=== PATIENT | male | born 1950 ===

== ENCOUNTER 2020-05-07 12:34 | Inpatient (IN) | payer MEDICARE ==
[~2020-05-07] VITALS: Ht 170.2 cm; Wt 56.0 kg
[2020-05-07] MEDS ORDERED: ASPIRIN 325 MG TABLET PO ONE (12:43)
--- NOTE | 2020-05-07 12:48 | NUR ---
PT BIB EMS FOR STEMI ALERT. EMS WAS CALLED TO [place] BY PT FAMILY MEMBER. PT WAS CO OF DIZZINES AND PER FAMILY HAD 3 NEAR SYNCOPLE EPISODES. EMS DID A [address] ELEVATION. EMS ALSO STATED HE WAS HYPOTENSIVE "IN THE 80S OVER 40S THE WHOLE TIME" PT HAS DENIED CHEST PAIN BUT STATES HES NAUSEOUS AND DIZZY. 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 ED MD AND EQUINE INTERN BEDSIDE FOR ASSESSMENT EKG COMPLETE. I STAT LABS DRAWN. PT ON DEFIB PADS. TKO NS RUNNING. PT PUT ON 2 LITERS O2 VIA NC. PT AWAITING TO GO TO FIRST AID INSTRUCTOR AT THIS TIME
--- NOTE | 2020-05-07 12:53 | NUR ---
PRODUCTION MANAGER NOT READY AT THIS TIME. WILL CALL ED WHEN READY FOR PT.
--- NOTE | 2020-05-07 12:54 | NUR ---
INVESTIGATION OFFICER AWARE OF PT BP. SEE MAR FOR INTERVENTIONS
[2020-05-07] MEDS ORDERED: SODIUM CHLORIDE 0.9% 1,000ML IVBOLUS ONE (13:00)
[2020-05-07 13:01] LABS: BASOPHILS % (AUTO) 0 % (0-1); EOSINOPHILS % (AUTO) 0 % (1-7); LYMPHOCYTES % (AUTO) 5 % (22-44); MEAN CORPUSCULAR HEMOGLOBIN 23.3 pg (27.5-34.5); MEAN CORPUSCULAR HGB CONC 30.5 g/dL (33.2-36.2); MEAN PLATELET VOLUME 6.9 fL (7.4-10.4); MONOCYTES % (AUTO) 11 % (2-9); NEUTROPHILS % (AUTO) 84 % (42-75); PLATELET COUNT 391 x10^3/uL (130-400); RED BLOOD COUNT 3.61 x10^6/uL (4.38-5.82); RED CELL DISTRIBUTION WIDTH 19.1 % (9.4-14.8)
[2020-05-07 13:08] LABS: MD NO
--- NOTE | 2020-05-07 13:08 | NUR ---
PT RESTING IN RJACOB. NAD. VSS. BP HAS IMPROVED. STILL AWAITING DIRECTOR OF ENGINEERING.
[2020-05-07 13:12] LABS: TROPONIN I 0.058 ng/mL (0.000-0.045)
[2020-05-07] MEDS ORDERED: NITROGLYCERIN 30 MCG/ML, 20ML VIAL ONE (13:21)
[2020-05-07] MEDS ORDERED: BIVALIRUDIN 250 MG ONE (13:21)
[2020-05-07] MEDS ORDERED: FENTANYL PF 250 MCG/5ML ONE (13:21)
[2020-05-07] MEDS ORDERED: MIDAZOLAM 1 MG/ML, 5ML ONE ×2 (13:21→20:18)
[2020-05-07 13:23] LABS: INTERNATIONAL NORMALIZED RATIO 1.08 (0.93-1.1); PROTHROMBIN TIME 11.4 Seconds (9.6-11.5)
--- NOTE | 2020-05-07 13:23 | NUR ---
CODE CARDIAC NOTES: CODE CARDIAC PAGED @ 1230. PT ARRIVED IN ED VIA EMS @ 1232. CARDIOLOGY PAGED @ 1232. DR. CAMERON AT BEDSIDE @ 1234. PT TO POULTRYMAN @ 1123.
[2020-05-07] MEDS ORDERED: LIDOCAINE 1%, 20ML ONE (13:27)
[2020-05-07] MEDS ORDERED: GABAPENTIN 300 MG CAPSULE PO PRN (13:30)
[2020-05-07] MEDS ORDERED: ONDANSETRON ODT 4 MG PO PRN (13:30)
[2020-05-07] MEDS ORDERED: OXYcodone/APAP 5/325MG TABLET PO PRN (13:30)
[2020-05-07] MEDS ORDERED: LABETALOL 5MG/ML, 20ML IVPush PRN (13:30)
[2020-05-07] MEDS ORDERED: ENALAPRILAT 1.25 MG/ML, 2ML IVPush PRN (13:30)
[2020-05-07] MEDS ORDERED: ONDANSETRON 2MG/ML, 2ML IVPush PRN (13:30)
[2020-05-07] MEDS ORDERED: ACETAMINOPHEN 325 MG TABLET PO PRN (13:30)
[2020-05-07] MEDS ORDERED: BACLOFEN 10 MG TABLET PO PRN (13:30)
[2020-05-07] MEDS ORDERED: BUTALB/APAP/CAFFEINE 50MG/325MG/40MG PO PRN (13:30)
[2020-05-07] MEDS ORDERED: LACTATED RINGERS 1,000 ML IV SCH (13:30)
[2020-05-07] MEDS ORDERED: GUAIFENESIN/DM 200-20MG, 10ML UDC PO PRN (13:30)
--- NOTE | 2020-05-07 13:32 | NUR ---
DEPARTED FOR NEWS CLIPPING CUTTER AT 1322. REPORT GIVEN TO KERI JOHNSON. EXPLAINED TO HER THAT PT WAS MEETING SEPSIS CRITERIA PER [employer] AND GAVE HER THE SEPSIS FLOW CHART THAT HAD BEEN STARTED IN THE ED.
--- NOTE | 2020-05-07 13:32 | NUR ---
CHAKA THOMAS, DEEPTHI, ( 05/14/1989) CELL: [phone]. Addendum: 05/07/20 at 1333 by JACOB PT'S DAUGHTER CALLED RE: PT. PRIMARY RN NOT AVAILABLE; WILL LEAVE NOTE FOR RN TO CALL DAUGHTER.
[2020-05-07] MEDS ORDERED: DOPAMINE/D5W PMX 250 ML ONE (13:42)
[2020-05-07] MEDS ORDERED: NOREPINEPHRINE 1 MG/ML, 4ML ONE (14:29)
[2020-05-07] MEDS ORDERED: SENNA/DOCUSATE TABLET NG PRN (14:30)
[2020-05-07] MEDS ORDERED: GLUCAGON 1 MG IM PRN (14:30)
[2020-05-07] MEDS ORDERED: PHARMACY MAY ADJ FOR RENAL FX MC SCH (14:30)
[2020-05-07] MEDS ORDERED: LIDOCAINE-MPF 1%, 2ML ENDO PRN (14:30)
[2020-05-07] MEDS ORDERED: ONDANSETRON 2MG/ML, 2ML IV PRN (14:30)
[2020-05-07] MEDS ORDERED: DEXTROSE 50%, 50ML SYRINGE IVPush PRN (14:30)
[2020-05-07] MEDS ORDERED: BISACODYL 10 MG SUPP PR PRN (14:30)
[2020-05-07] MEDS ORDERED: NOREPINEPHRINE 8 MG in SODIUM CHLORIDE 0.9% 242 ML IV PRN (14:30)
[2020-05-07] MEDS ORDERED: FENTANYL PF 100 MCG/2ML IVPush PRN (14:30)
[2020-05-07] MEDS ORDERED: DEXTROSE 4 GM TAB.CHEW PO PRN (14:30)
[2020-05-07] MEDS ORDERED: VANCOMYCIN PER PHARMACY MC PRN (15:00)
[2020-05-07 15:21] LABS: BASOPHILS % (AUTO) 0 % (0-1); EOSINOPHILS % (AUTO) 0 % (1-7); LYMPHOCYTES % (AUTO) 5 % (22-44); MEAN CORPUSCULAR HEMOGLOBIN 23.2 pg (27.5-34.5); MEAN CORPUSCULAR HGB CONC 30.9 g/dL (33.2-36.2); MONOCYTES % (AUTO) 12 % (2-9); NEUTROPHILS % (AUTO) 83 % (42-75); PLATELET COUNT 378 x10^3/uL (130-400); RED BLOOD COUNT 3.42 x10^6/uL (4.38-5.82); RED CELL DISTRIBUTION WIDTH 18.9 % (9.4-14.8)
[2020-05-07 15:22] LABS: MD NO
[2020-05-07 15:30] LABS: ALANINE AMINOTRANSFERASE 12 U/L (12-78); ALBUMIN 2.6 g/dL (3.4-5.0); ANION GAP 7 mmol/L (5-15); BILIRUBIN, DIRECT 0.1 mg/dL (0.1-0.2); CALCIUM 7.5 mg/dL (8.5-10.1); CHLORIDE 100 mmol/L (98-107); CREATININE 1.91 mg/dL (0.7-1.3)
[2020-05-07] MEDS ORDERED: PHARMACOKINETIC CONSULTATION MC ONE (15:30)
[2020-05-07] MEDS ORDERED: PHARMACOKINETIC MONITORING MC PRN (15:30)
[2020-05-07] MEDS ORDERED: VANCOMYCIN 1,500 MG in SODIUM CHLORIDE 0.9% 250 ML IV ONE (15:30)
[2020-05-07 15:33] LABS: ALKALINE PHOSPHATASE 79 U/L (45-117); BILIRUBIN,INDIRECT 0.2 mg/dL (0.0-2.0); BILIRUBIN,TOTAL 0.3 mg/dL (0.2-1.0); TOTAL PROTEIN 5.8 g/dL (6.4-8.2); TRIGLYCERIDES 157 mg/dL (50-200)
[2020-05-07] MEDS ORDERED: SODIUM CHLORIDE 0.9% 1,000 ML IV SCH (16:00)
[2020-05-07] MEDS: PIPERACILLIN/TAZO/PMX 3.375GM 50 ML IV SCH ×2 (16:21→23:35)
[2020-05-07 16:33] LABS: MICROSCOPIC NOT IND
[2020-05-07] MEDS: HEPARIN 5,000 UNITS/ML, 1ML SQ SCH (18:09)
[2020-05-07] MEDS ORDERED: PROPOFOL 10 MG/ML, 20ML ONE (20:18)
[2020-05-07] MEDS ORDERED: PROPOFOL 10 MG/ML, 100ML IV ONE (20:18)
[2020-05-07] MEDS: PROPOFOL 100 ML IV PRN (20:22)
[2020-05-07] MEDS: SODIUM CHLORIDE FLUSH 10ML SYR IVF SCH (20:22)
[2020-05-07 20:30] LABS: TROPONIN I 0.277 ng/mL (0.000-0.045)
[2020-05-07] MEDS ORDERED: MELATONIN 5 MG TABLET PO SCH (21:00)
[2020-05-07] MEDS ORDERED: LACTULOSE 10 GM/15 ML UDC PO SCH (21:00)
[2020-05-08] MEDS: HEPARIN 5,000 UNITS/ML, 1ML SQ SCH ×3 (01:18→18:09)
[2020-05-08 02:34] LABS: TROPONIN I 0.212 ng/mL (0.000-0.045)
[2020-05-08 04:00] VITALS: BP 108/73
[2020-05-08 05:00] LABS: BASOPHILS % (AUTO) 1 % (0-1); EOSINOPHILS % (AUTO) 0 % (1-7); LYMPHOCYTES % (AUTO) 9 % (22-44); MEAN CORPUSCULAR HEMOGLOBIN 23.4 pg (27.5-34.5); MEAN CORPUSCULAR HGB CONC 31.9 g/dL (33.2-36.2); MEAN PLATELET VOLUME 6.6 fL (7.4-10.4); MONOCYTES % (AUTO) 11 % (2-9); NEUTROPHILS % (AUTO) 79 % (42-75); PLATELET COUNT 353 x10^3/uL (130-400); RED BLOOD COUNT 3.19 x10^6/uL (4.38-5.82)
[2020-05-08 05:10] LABS: MD NO
[2020-05-08 05:20] LABS: CHLORIDE 107 mmol/L (98-107)
[2020-05-08 05:42] LABS: ALANINE AMINOTRANSFERASE 11 U/L (12-78); ALBUMIN 2.4 g/dL (3.4-5.0); ALKALINE PHOSPHATASE 71 U/L (45-117); ANION GAP 7 mmol/L (5-15); BILIRUBIN,TOTAL 0.7 mg/dL (0.2-1.0); CALCIUM 7.5 mg/dL (8.5-10.1); CREATININE 0.86 mg/dL (0.7-1.3); TOTAL PROTEIN 5.3 g/dL (6.4-8.2)
[2020-05-08] MEDS: PROPOFOL 100 ML IV PRN (05:55)
[2020-05-08] MEDS: PIPERACILLIN/TAZO/PMX 3.375GM 50 ML IV SCH (05:56)
[2020-05-08] MEDS ORDERED: POTASSIUM CHLORIDE 10% 40 MEQ/30 ML UDC PO ONE (07:00)
[2020-05-08] MEDS ORDERED: PANTOPRAZOLE 40 MG IV IV SCH (09:00)
[2020-05-08] MEDS ORDERED: RACEPINEPHRINE INH 2.25%, 0.5ML ONE (09:24)
[2020-05-08] MEDS ORDERED: BUDESONIDE 0.5 MG/2 ML INHA INH ONE (10:00)
[2020-05-08] MEDS ORDERED: RACEPINEPHRINE INH 2.25%, 0.5ML NPPB ONE ×3 (10:00→21:00)
[2020-05-08] MEDS: SODIUM CHLORIDE FLUSH 10ML SYR IVF SCH ×2 (10:02→20:59)
[2020-05-08] MEDS: IRON SUCROSE COMPLEX 100MG/5ML IV SCH (13:51)
[2020-05-08] MEDS: ALBUTEROL HFA 90 MCG/SPRAY INH SCH ×2 (15:45→20:00)
[2020-05-08 20:00] VITALS: BP 96/61
[2020-05-08] MEDS: DEXAMETHASONE 4 MG/ML, 1ML IVPush SCH (20:59)
[2020-05-09] MEDS: HEPARIN 5,000 UNITS/ML, 1ML SQ SCH ×3 (01:07→17:40)
[2020-05-09 02:00] VITALS: BP 98/69
[2020-05-09] MEDS: DEXAMETHASONE 4 MG/ML, 1ML IVPush SCH ×4 (02:30→21:20)
[2020-05-09] MEDS: PANTOPRAZOLE 40MG TABLET PO SCH (05:51)
[2020-05-09] MEDS: ALBUTEROL HFA 90 MCG/SPRAY INH SCH ×4 (07:20→22:36)
[2020-05-09] MEDS: FLUTICASONE/VILANTEROL 100-25MCG/INH INH SCH (07:22)
[2020-05-09 08:06] VITALS: BP 127/78
[2020-05-09] MEDS: IRON SUCROSE COMPLEX 100MG/5ML IV SCH (08:22)
[2020-05-09] MEDS: SODIUM CHLORIDE FLUSH 10ML SYR IVF SCH ×2 (08:27→21:20)
[2020-05-09 14:43] VITALS: BP 112/74
[2020-05-09 20:21] VITALS: BP 100/61
[2020-05-10] VITALS (9 sets, daily range): BP systolic 94–136; BP diastolic 60–117
[2020-05-10] MEDS: DEXAMETHASONE 4 MG/ML, 1ML IVPush SCH ×3 (01:49→18:08)
[2020-05-10] MEDS: HEPARIN 5,000 UNITS/ML, 1ML SQ SCH ×3 (01:49→17:30)
[2020-05-10 05:08] LABS: BASOPHILS % (AUTO) 0 % (0-1); EOSINOPHILS % (AUTO) 0 % (1-7); LYMPHOCYTES % (AUTO) 2 % (22-44); MEAN CORPUSCULAR HEMOGLOBIN 23.3 pg (27.5-34.5); MEAN CORPUSCULAR HGB CONC 30.8 g/dL (33.2-36.2); MEAN PLATELET VOLUME 6.7 fL (7.4-10.4); MONOCYTES % (AUTO) 3 % (2-9); NEUTROPHILS % (AUTO) 95 % (42-75); PLATELET COUNT 410 x10^3/uL (130-400); RED BLOOD COUNT 2.95 x10^6/uL (4.38-5.82); RED CELL DISTRIBUTION WIDTH 19.6 % (9.4-14.8)
[2020-05-10 05:16] LABS: MD NO
[2020-05-10 05:19] LABS: ANION GAP 2 mmol/L (5-15); CALCIUM 8.6 mg/dL (8.5-10.1); CHLORIDE 104 mmol/L (98-107); TRIGLYCERIDES 67 mg/dL (50-200); VLDL CHOLESTEROL 13 mg/dL (0-25)
[2020-05-10 05:24] LABS: CHOL/HDL RATIO 2.3; CHOLESTEROL, TOTAL 114 mg/dL (140-239); CREATININE 0.85 mg/dL (0.7-1.3); HDL CHOL % 44 % (26-37); HDL CHOLESTEROL (DIRECT) 50 mg/dL (40-60); LDL CHOLESTEROL,CALCULATED 51 mg/dL (54-169)
[2020-05-10] MEDS: PANTOPRAZOLE 40MG TABLET PO SCH (05:58)
[2020-05-10] MEDS: ALBUTEROL HFA 90 MCG/SPRAY INH SCH ×4 (07:15→19:13)
[2020-05-10] MEDS: FLUTICASONE/VILANTEROL 100-25MCG/INH INH SCH (07:15)
[2020-05-10] MEDS: SODIUM CHLORIDE FLUSH 10ML SYR IVF SCH ×2 (09:49→20:19)
[2020-05-10] MEDS: IRON SUCROSE COMPLEX 100MG/5ML IV SCH (09:49)
[2020-05-10 19:41] LABS: OCCULT BLOOD POSITIVE (NEGATIVE)
[2020-05-10] MEDS: PANTOPRAZOLE 40 MG IV IVPush SCH (22:06)
[2020-05-11] MEDS: HEPARIN 5,000 UNITS/ML, 1ML SQ SCH ×3 (01:29→19:55)
[2020-05-11 01:58] VITALS: BP 121/80
[2020-05-11 05:53] LABS: MEAN CORPUSCULAR HEMOGLOBIN 24.7 pg (27.5-34.5); MEAN CORPUSCULAR HGB CONC 31.3 g/dL (33.2-36.2); PLATELET COUNT 413 x10^3/uL (130-400); RED BLOOD COUNT 3.46 x10^6/uL (4.38-5.82); RED CELL DISTRIBUTION WIDTH 20.3 % (9.4-14.8)
[2020-05-11 06:36] LABS: MD YES
[2020-05-11 06:37] LABS: BAND#(MANUAL) 0.35 x10^3/uL; BANDS%(MANUAL) 2 % (0-7); LYMPH#(MANUAL) 0.53 x10^3/uL (1-3.4); LYMPHS% (MANUAL) 3 % (22-44); MONOS#(MANUAL) 0.88 x10^3/uL (0.3-2.7); MONOS% (MANUAL) 5 % (2-9); SEG#(MANUAL) 15.75 x10^3/uL (1.8-6.8); SEGS% (MANUAL) 90 % (42-75)
[2020-05-11 06:39] LABS: HYPOCHROMIA 1+; MICROCYTOSIS 1+; OVALOCYTES 1+
[2020-05-11 06:40] LABS: <PLATELET ESTIMATE> ADEQUATE; <PLT MORPHOLOGY> NORMAL PLT MORPH; ANISOCYTOSIS 2+; POLYCHROMASIA 1+
[2020-05-11 07:05] VITALS: BP 135/89
[2020-05-11] MEDS: FLUTICASONE/VILANTEROL 100-25MCG/INH INH SCH (07:20)
[2020-05-11] MEDS: ALBUTEROL HFA 90 MCG/SPRAY INH SCH ×4 (07:20→19:07)
[2020-05-11] MEDS: SODIUM CHLORIDE FLUSH 10ML SYR IVF SCH ×2 (09:39→19:56)
[2020-05-11] MEDS: IRON SUCROSE COMPLEX 100MG/5ML IV SCH (09:39)
[2020-05-11] MEDS: PANTOPRAZOLE 40 MG IV IVPush SCH (09:39)
[2020-05-11 12:23] VITALS: BP 110/75
[2020-05-11] MEDS: LISINOPRIL 5 MG TABLET PO SCH (12:26)
[2020-05-11 15:51] VITALS: BP 99/60
[2020-05-11] MEDS: PANTOPRAZOLE 40MG TABLET PO SCH (17:23)
[2020-05-11 19:58] VITALS: BP 92/51
[2020-05-12 03:04] VITALS: BP 100/67
[2020-05-12] MEDS: HEPARIN 5,000 UNITS/ML, 1ML SQ SCH ×2 (04:55→12:30)
[2020-05-12 06:00] LABS: MEAN CORPUSCULAR HGB CONC 31.5 g/dL (33.2-36.2); MEAN PLATELET VOLUME 7.1 fL (7.4-10.4); PLATELET COUNT 388 x10^3/uL (130-400); RED BLOOD COUNT 3.48 x10^6/uL (4.38-5.82); RED CELL DISTRIBUTION WIDTH 20.6 % (9.4-14.8)
[2020-05-12] MEDS: PANTOPRAZOLE 40MG TABLET PO SCH (06:33)
[2020-05-12 06:39] VITALS: BP 90/56
[2020-05-12 06:56] LABS: MD YES
[2020-05-12 06:58] LABS: ANISOCYTOSIS 1+; EOS#(MANUAL) 0.23 x10^3/uL (0.0-0.4); EOS% (MANUAL) 2 % (1-7); HYPOCHROMIA 1+; LYMPHS% (MANUAL) 14 % (22-44); MICROCYTOSIS 1+; MONOS#(MANUAL) 1.37 x10^3/uL (0.3-2.7); MONOS% (MANUAL) 12 % (2-9); MYELOCYTES# (MANUAL) 0.34 x10^3/uL (0-0); MYELOCYTES% (MANUAL) 3 % (0-0); OVALOCYTES 1+; POLYCHROMASIA 1+; SEG#(MANUAL) 7.87 x10^3/uL (1.8-6.8); SEGS% (MANUAL) 69 % (42-75)
[2020-05-12 06:59] LABS: <PLATELET ESTIMATE> ADEQUATE; <PLT MORPHOLOGY> NORMAL PLT MORPH; TARGET CELLS 1+; TEAR DROPS 1+
[2020-05-12] MEDS: ALBUTEROL HFA 90 MCG/SPRAY INH SCH ×2 (07:20→12:23)
[2020-05-12] MEDS: FLUTICASONE/VILANTEROL 100-25MCG/INH INH SCH (07:20)
[2020-05-12] MEDS ORDERED: PANT40TA3 PO (07:52)
[2020-05-12] MEDS ORDERED: FERR325T18 PO (07:52)
[2020-05-12] MEDS ORDERED: ASPI81TA45 PO (07:52)
[2020-05-12 09:33] VITALS: BP_SYST 86; BP_SYST 89; BP_DIAS 58; BP_DIAS 60
[2020-05-12] MEDS: SODIUM CHLORIDE FLUSH 10ML SYR IVF SCH (09:42)
[2020-05-12] MEDS: IRON SUCROSE COMPLEX 100MG/5ML IV SCH (09:42)
[2020-05-12] MEDS: LISINOPRIL 5 MG TABLET PO SCH (09:42)
[2020-05-12] MEDS ORDERED: FLU VACC QS2020-21(6MOS UP)/PF 60MCG/0.5 ML SYR IM-VACC ONE (11:30)
[2020-05-12 12:43] VITALS: BP 95/61
== END 2020-05-12 13:06 | disposition home or self-care (01) | DRG 208 ==
LOC: EDBD → MERGE 12:34 → ED 14:08 → EDIP 14:10 → CCU 14:22 → 5SO 05-09 19:34 → DCLOUNGE 05-12 12:58
PROVIDERS: ADMIT Internal Medicine; ATTEND Internal Medicine
PROC: 4A023N7 Measurement of Cardiac Sampling and Pressure, Left Heart, Percutaneous Approach (ICD-10-PCS; principal; 2020-05-07)
PROC: B2111ZZ Fluoroscopy of Multiple Coronary Arteries using Low Osmolar Contrast (ICD-10-PCS; 2020-05-07)
PROC: 5A1935Z Respiratory Ventilation, Less than 24 Consecutive Hours (ICD-10-PCS; 2020-05-07)
PROC: 0BH17EZ Insertion of Endotracheal Airway into Trachea, Via Natural or Artificial Opening (ICD-10-PCS; 2020-05-07)
PROC: 0T9B70Z Drainage of Bladder with Drainage Device, Via Natural or Artificial Opening (ICD-10-PCS; 2020-05-07)
PROC: 30233N1 Transfusion of Nonautologous Red Blood Cells into Peripheral Vein, Percutaneous Approach (ICD-10-PCS; 2020-05-10)
DX: J96.01 Acute respiratory failure with hypoxia (principal); E43 Unspecified severe protein-calorie malnutrition; G93.41 Metabolic encephalopathy; N17.0 Acute kidney failure with tubular necrosis; R57.1 Hypovolemic shock; I50.43 Acute on chronic combined systolic (congestive) and diastolic (congestive) heart failure; E87.1 Hypo-osmolality and hyponatremia; Z99.11 Dependence on respirator [ventilator] status; Z68.1 Body mass index [BMI] 19.9 or less, adult; I25.10 Atherosclerotic heart disease of native coronary artery without angina pectoris; I25.5 Ischemic cardiomyopathy; J44.9 Chronic obstructive pulmonary disease, unspecified; I11.0 Hypertensive heart disease with heart failure; E78.5 Hyperlipidemia, unspecified; Z20.828 Contact with and (suspected) exposure to other viral communicable diseases; D50.9 Iron deficiency anemia, unspecified; E86.0 Dehydration; E87.6 Hypokalemia; I25.2 Old myocardial infarction; Z79.899 Other long term (current) drug therapy; D72.829 Elevated white blood cell count, unspecified; Z72.0 Tobacco use; I95.89 Other hypotension
CPT/HCPCS: 36415; 36600; 71045; 80047; 80048; 80053; 80061; 80076; 81003; 82272; 82533; 82728; 82803; 83540; 83550; 83605; 83735; 84100; 84145; 84478; 84484; 85025; 85610; 85730; 86850; 86900; 86923; 87040; 87070; 87081; 87205; 87635; 90686; 93005; 93458; 94002; 94003; 94640; 99156; 99285; C1769; C1894; C8929; G0378; J0583; J1100; J1265; J1644; J1756; J2250; J2543; J2704; J3010; J3370; J7626; Q9957; C9113; J7030; J7050; P9016; Q9967

== ENCOUNTER 2020-06-25 18:54 | Inpatient (IN) | payer MEDICARE ==
[~2020-06-25] VITALS: Ht 170.2 cm; Wt 51.3 kg
[~2020-06-25 18:54] MED LIST: ASPI81TA45 PO; FERR325T18 PO; PANT40TA3 PO
[2020-06-25] MEDS ORDERED: ASPIRIN 81 MG TABLET CHEW ONE (19:29)
[2020-06-25] MEDS ORDERED: ASPIRIN 81 MG TABLET CHEW PO ONE (19:30)
[2020-06-25 19:39] LABS: BASOPHILS % (AUTO) 1 % (0-1); EOSINOPHILS % (AUTO) 1 % (1-7); LYMPHOCYTES % (AUTO) 5 % (22-44); MEAN CORPUSCULAR HEMOGLOBIN 26.6 pg (27.5-34.5); MEAN CORPUSCULAR HGB CONC 31.1 g/dL (33.2-36.2); MEAN PLATELET VOLUME 6.6 fL (7.4-10.4); MONOCYTES % (AUTO) 9 % (2-9); NEUTROPHILS % (AUTO) 85 % (42-75); PLATELET COUNT 364 x10^3/uL (130-400); RED BLOOD COUNT 4.02 x10^6/uL (4.38-5.82)
[2020-06-25 19:51] LABS: ALANINE AMINOTRANSFERASE 18 U/L (12-78); ALBUMIN 2.7 g/dL (3.4-5.0); ANION GAP 2 mmol/L (5-15); CALCIUM 8.4 mg/dL (8.5-10.1); CHLORIDE 102 mmol/L (98-107); CREATININE 0.78 mg/dL (0.7-1.3)
[2020-06-25 19:56] LABS: ALKALINE PHOSPHATASE 133 U/L (45-117); BILIRUBIN,TOTAL 0.4 mg/dL (0.2-1.0); TOTAL PROTEIN 6.7 g/dL (6.4-8.2); TROPONIN I 0.017 ng/mL (0.000-0.045)
[2020-06-25] MEDS ORDERED: ALBUTEROL/IPRATROPIUM 2.5MG/0.5MG, 3 ML NPPB ONE (20:00)
[2020-06-25 20:03] LABS: MD MORPH REVIEW ONLY
[2020-06-25] MEDS ORDERED: ALBUTEROL/IPRATROPIUM 2.5MG/0.5MG, 3 ML ONE (20:03)
[2020-06-25 20:04] LABS: ANISOCYTOSIS 2+
[2020-06-25 20:05] LABS: HYPOCHROMIA 1+; OVALOCYTES 1+; POLYCHROMASIA 1+
[2020-06-25 20:06] LABS: <PLATELET ESTIMATE> ADEQUATE; <PLT MORPHOLOGY> NORMAL PLT MORPH
--- NOTE | 2020-06-25 21:06 | NUR ---
report from efrain assumed care of pt at this time
--- NOTE | 2020-06-25 21:13 | NUR ---
PT 86-88% ON RA. 2L 02 PLACED 94%. PROVIDER NOTIFIED.
--- NOTE | 2020-06-25 21:24 | NUR ---
piv placed dr castano at bedside, pt to be admitted
[2020-06-25] MEDS ORDERED: DEXAMETHASONE 4 MG TABLET PO ONE (21:30)
[2020-06-25] MEDS ORDERED: DEXAMETHASONE 4 MG TABLET ONE (22:21)
[2020-06-25] MEDS ORDERED: SODIUM CHLORIDE FLUSH 10ML SYR IVF PRN (23:30)
--- NOTE | 2020-06-26 00:28 | NUR ---
ADMITING MD AT THE BEDSIDE
--- NOTE | 2020-06-26 00:28 | NUR ---
PT RESTING IN NAD AT THIS TIME
[2020-06-26] MEDS ORDERED: ACETAMINOPHEN 325 MG TABLET PO PRN (01:00)
[2020-06-26] MEDS ORDERED: FUROSEMIDE 20 MG/2 ML IV ONE (01:00)
[2020-06-26] MEDS ORDERED: PHARMACY MAY ADJ FOR RENAL FX MC PRN (01:00)
[2020-06-26] MEDS ORDERED: LABETALOL 5MG/ML, 20ML IVPush PRN (01:00)
[2020-06-26] MEDS ORDERED: MELATONIN 5 MG TABLET PO PRN (01:00)
[2020-06-26] MEDS ORDERED: ENOXAPARIN 40 MG/0.4 ML SQ SCH (01:00)
[2020-06-26] MEDS ORDERED: ONDANSETRON 2MG/ML, 2ML IVPush PRN (01:00)
--- NOTE | 2020-06-26 01:00 | NUR ---
REPORT TO GREYSON TO TO FLOOR WITH TECH
[2020-06-26 01:34] VITALS: BP 115/74
[2020-06-26 01:48] LABS: C-REACTIVE PROTEIN, QUANT 4.5 mg/dL (0.02-0.49)
[2020-06-26] MEDS: AZITHROMYCIN 500 MG TABLET PO SCH ×2 (02:04→09:20)
[2020-06-26 02:48] LABS: BASOPHILS % (AUTO) 1 % (0-1); EOSINOPHILS % (AUTO) 0 % (1-7); LYMPHOCYTES % (AUTO) 1 % (22-44); MEAN CORPUSCULAR HEMOGLOBIN 26.9 pg (27.5-34.5); MEAN CORPUSCULAR HGB CONC 31.6 g/dL (33.2-36.2); MEAN PLATELET VOLUME 6.6 fL (7.4-10.4); MONOCYTES % (AUTO) 0 % (2-9); NEUTROPHILS % (AUTO) 98 % (42-75); PLATELET COUNT 383 x10^3/uL (130-400); RED BLOOD COUNT 4.19 x10^6/uL (4.38-5.82); RED CELL DISTRIBUTION WIDTH 25.2 % (9.4-14.8)
[2020-06-26 02:58] LABS: ANION GAP 1 mmol/L (5-15); CALCIUM 8.8 mg/dL (8.5-10.1); CHLORIDE 102 mmol/L (98-107); CREATININE 0.86 mg/dL (0.7-1.3)
[2020-06-26] MEDS ORDERED: ALBUTEROL HFA 90 MCG/SPRAY INH PRN (03:00)
[2020-06-26 03:04] LABS: MD NO
[2020-06-26 07:34] VITALS: BP 101/72
[2020-06-26] MEDS: PANTOPRAZOLE 40MG TABLET PO SCH (09:19)
[2020-06-26] MEDS: ASPIRIN 81 MG TABLET EC PO SCH (09:19)
[2020-06-26] MEDS: THIAMINE 200 MG in SODIUM CHLORIDE 0.9% 50 ML IV SCH ×2 (09:19→21:27)
[2020-06-26] MEDS: FERROUS SULFATE 325 MG TABLET PO SCH (09:20)
[2020-06-26] MEDS: ZINC SULFATE 220 MG CAPSULE PO SCH (09:20)
[2020-06-26] MEDS: DEXAMETHASONE 4 MG/ML, 1ML IVPush SCH (09:22)
[2020-06-26 13:16] VITALS: BP 93/59
[2020-06-26 19:41] VITALS: BP 115/74
[2020-06-26] MEDS: ENOXAPARIN 60 MG/0.6 ML SQ SCH (21:27)
[2020-06-27] MEDS ORDERED: OMNIPAQUE 350 MG/ML, 100ML BOTTLE ONE (02:23)
[2020-06-27 02:51] VITALS: BP 115/76
[2020-06-27 08:01] VITALS: BP 94/60
[2020-06-27] MEDS: AZITHROMYCIN 500 MG TABLET PO SCH (08:04)
[2020-06-27] MEDS: FERROUS SULFATE 325 MG TABLET PO SCH (08:04)
[2020-06-27] MEDS: ASPIRIN 81 MG TABLET EC PO SCH (08:04)
[2020-06-27] MEDS: ENOXAPARIN 60 MG/0.6 ML SQ SCH (08:04)
[2020-06-27] MEDS: PANTOPRAZOLE 40MG TABLET PO SCH (08:04)
[2020-06-27] MEDS: ZINC SULFATE 220 MG CAPSULE PO SCH (08:04)
[2020-06-27] MEDS: DEXAMETHASONE 4 MG/ML, 1ML IVPush SCH (08:05)
[2020-06-27] MEDS: THIAMINE 200 MG in SODIUM CHLORIDE 0.9% 50 ML IV SCH (10:28)
[2020-06-27] MEDS ORDERED: ALBU18HF INH (10:36)
[2020-06-27] MEDS ORDERED: PANT40TA3 PO (10:36)
[2020-06-27] MEDS ORDERED: AZIT500T10 PO (10:36)
[2020-06-27] MEDS ORDERED: PRED20TA PO (10:36)
[2020-06-27 13:52] VITALS: BP 124/87
== END 2020-06-27 15:20 | disposition home health service (06) | DRG 291 ==
LOC: ED 21:10 → EDIP 23:16 → 3N 06-26 01:31
PROVIDERS: ADMIT Family Medicine; ATTEND Hospitalist
DX: I11.0 Hypertensive heart disease with heart failure (principal); E43 Unspecified severe protein-calorie malnutrition; M48.56XA Collapsed vertebra, not elsewhere classified, lumbar region, initial encounter for fracture; Z68.1 Body mass index [BMI] 19.9 or less, adult; I50.43 Acute on chronic combined systolic (congestive) and diastolic (congestive) heart failure; D50.9 Iron deficiency anemia, unspecified; E78.5 Hyperlipidemia, unspecified; F17.210 Nicotine dependence, cigarettes, uncomplicated; I25.10 Atherosclerotic heart disease of native coronary artery without angina pectoris; I25.82 Chronic total occlusion of coronary artery; J06.9 Acute upper respiratory infection, unspecified; J43.9 Emphysema, unspecified; Z20.828 Contact with and (suspected) exposure to other viral communicable diseases; I25.5 Ischemic cardiomyopathy; Z66 Do not resuscitate; Z86.73 Personal history of transient ischemic attack (TIA), and cerebral infarction without residual deficits; I25.2 Old myocardial infarction; Z79.899 Other long term (current) drug therapy
CPT/HCPCS: 36415; 71045; 71275; 80048; 80053; 83615; 83880; 84484; 85025; 85379; 86140; 93005; G0378; J1100; J1650; J2405; J3411; Q9967; J1940; U0003